=== PATIENT | female | born 1950 | race Caucasian/White ===

== ENCOUNTER 2019-04-15 14:22 | Emergency (ER) | payer MEDICARE, OTHER ==
[~2019-04-15] VITALS: Ht 180.3 cm; Wt 113.0 kg
--- NOTE | 2019-04-15 14:23 | ED General ---
General Stated Complaint: HIP PAIN History of Present Illness Date Seen by Provider: Apr 15, 2019 Time Seen by Provider: 14:23 Initial Comments Patient is a 68-year-old female who comes to the emergency department today complaining of left hip pain. The patient was standing upright and twisted a certain position to the right and she felt a pop and had sudden onset of pain in the left hip. Her pain is over the lateral aspect of the hip. She has been able to weight-bear although this does cause pain. She has otherwise been healthy. No recent fever, chills, cough or other illness. Allergies and Home Medications Allergies Coded Allergies: Penicillins (Verified Allergy, Unknown, 04/15/19) erythromycin base (Verified Allergy, Unknown, 04/15/19) Patient Home Medication List Home Medication List Reviewed: Yes Review of Systems Review of Systems Constitutional: no symptoms reported EENTM: no symptoms reported Respiratory: no symptoms reported Cardiovascular: no symptoms reported Genitourinary: no symptoms reported Musculoskeletal: no symptoms reported, see HPI Skin: no symptoms reported All Other Systems Reviewed Negative Unless Noted: Yes Physical Exam Vital Signs Vital Signs - First Documented 04/15/19 14:30 Temp 36.7 Pulse 72 Resp 16 B/P (MAP) 152/93 (112) Pulse Ox 100 O2 Delivery Room Air Capillary Refill : Height, Weight, BMI Height: '" Weight: lbs. oz. kg; BMI Method: General Appearance: No Apparent Distress, WD/WN HEENT: Normal ENT Inspection Neck: Full Range of Motion Respiratory: Lungs Clear Cardiovascular: Regular Rate, Rhythm, No Edema Gastrointestinal: Non Tender, Soft Extremity: Normal Capillary Refill, Normal Inspection Skin: Normal Color, Warm/Dry Progress/Results/Core Measures Suspected Sepsis SIRS Temperature: Pulse: Respiratory Rate: Blood Pressure / Mean: Results/Orders My Orders Orders - CHELY SCOTT DO Pelvis With Left Hip 2-3 View (04/15/19 14:29) Ct Extremity Lower Left Wo (04/15/19 15:01) Vital Signs/I&O 04/15/19 14:30 Temp 36.7 Pulse 72 Resp 16 B/P (MAP) 152/93 (112) Pulse Ox 100 O2 Delivery Room Air Capillary Refill : Progress Note : Progress Note ED Summary: The patient is evaluated in the emergency department for injury to left hip. On physical exam, the hip joint itself was not painful with internal or external rotation. Patient's lower extremity on the left is placed into DELIA position and compression onto the hip joint does not cause pain. She does have some point tenderness to palpation over the lateral aspect of the hip and the greater trochanter. Distal pulses are 2+. In the ER, she underwent plain film imaging which was negative. Subsequent to that she underwent CT scan of the hip which was also negative for acute fracture. She did have significant osteoarthritis but no acute injuries. Patient was discharged home with reassurance. She has seen orthopedics in the past and I recommended that she follow up with orthopedics in the next couple of weeks if her symptoms are not naturally improving. Tylenol or Motrin as needed for discomfort. Departure Impression Primary Impression: Contusion of hip Disposition: 01 HOME, SELF-CARE Condition: Improved CHELY SCOTT DO Apr 15, 2019 14:23
--- NOTE | 2019-04-15 15:00 | Diagnostic Imaging Report ---
INDICATION: Twisted and heard pop in left hip with pain. FINDINGS: AP pelvis and left hip. 3 views. SI joints and pubic symphysis in good alignment. Sclerotic changes are seen along the SI joints bilaterally. There are no pelvic fractures. 2 views left hip shows normal articulation of the joint. Articulating surfaces are smooth. No hypertrophic bony changes. No fractures. IMPRESSION: Degenerative changes SI joints with no acute abnormalities in the pelvis or left hip. Dictated by: Dictated on workstation # [id number]
--- NOTE | 2019-04-15 15:41 | Diagnostic Imaging Report ---
PROCEDURE: CT left lower extremity without contrast. TECHNIQUE: Multiple contiguous axial images were obtained through the left lower extremity without the use of intravenous contrast. Sagittal and coronal reformations were then performed. Auto Exposure Controls were utilized during the CT exam to meet ALARA standards for radiation dose reduction. INDICATION: Left hip pain. Patient reports pop with subsequent pain. FINDINGS: Noncontrasted images show the femoral head in good alignment. There is loss of joint space, consistent with degenerative disease. Mild hypertrophic lipping noted along both the lateral and medial acetabulum. Femoral head is smooth with no fractures. No evidence of osteonecrosis. The femoral neck and trochanter appear normal. No soft tissue calcifications are seen about the hip. Tissue planes are well preserved. IMPRESSION: Moderate degenerative arthritic changes of the left hip without evidence of acute fracture. Dictated by: Dictated on workstation # [id number]
[2019-04-15] MEDS ORDERED: IBUP-1780 PO (16:09)
[2019-04-15] MEDS ORDERED: TRM50T PO (16:10)
[2019-04-15 16:20] VITALS: BP 152/93
== END 2019-04-15 16:20 | disposition home or self-care (01) ==
LOC: ER FS 14:24
DX: S70.02XA Contusion of left hip, initial encounter (principal); Z88.0 Allergy status to penicillin; Z88.1 Allergy status to other antibiotic agents; X50.1XXA Overexertion from prolonged static or awkward postures, initial encounter
CPT/HCPCS: 73502; 73700

== ENCOUNTER 2022-02-09 09:42 | Outpatient (RCR) | payer MEDICARE, OTHER ==
[~2022-02-09 09:42] MED LIST: IBUP-1780 PO; TRM50T PO
== END 2022-02-27 | disposition home or self-care (01) ==
LOC: ONC 09:42
PROVIDERS: ATTEND Radiology Radiation Oncology
DX: C50.811 Malignant neoplasm of overlapping sites of right female breast (principal); I10 Essential (primary) hypertension; E78.00 Pure hypercholesterolemia, unspecified; Z90.13 Acquired absence of bilateral breasts and nipples; Z92.21 Personal history of antineoplastic chemotherapy
CPT/HCPCS: 99205

== ENCOUNTER → 2022-03-30 | Outpatient (RCR) | payer MEDICARE, OTHER | END | disposition home or self-care (01) | LOC: ONC 03-09 08:32 | PROVIDERS: ATTEND Radiology Radiation Oncology | DX: Z51.0 Encounter for antineoplastic radiation therapy (principal); C50.811 Malignant neoplasm of overlapping sites of right female breast; I10 Essential (primary) hypertension; E78.00 Pure hypercholesterolemia, unspecified; Z90.13 Acquired absence of bilateral breasts and nipples; Z92.21 Personal history of antineoplastic chemotherapy | CPT/HCPCS: 77280; 77290; 77295; 77300; 77332; 77334; 77336; 77417; 77470 ==

== ENCOUNTER → 2022-04-27 | Outpatient (RCR) | payer MEDICARE, OTHER | END | disposition home or self-care (01) | LOC: ONC 03-31 12:59 | PROVIDERS: ATTEND Radiology Radiation Oncology | DX: Z51.0 Encounter for antineoplastic radiation therapy (principal); C50.811 Malignant neoplasm of overlapping sites of right female breast; I10 Essential (primary) hypertension; E78.00 Pure hypercholesterolemia, unspecified; Z90.13 Acquired absence of bilateral breasts and nipples; Z92.21 Personal history of antineoplastic chemotherapy | CPT/HCPCS: 77290; 77300; 77332; 77334; 77336; 77417 ==

== ENCOUNTER 2022-04-29 10:58 | Outpatient (RCR) | payer MEDICARE, OTHER | END 2022-05-28 | disposition home or self-care (01) | LOC: ONC 10:58 | PROVIDERS: ATTEND Radiology Radiation Oncology | DX: Z51.0 Encounter for antineoplastic radiation therapy (principal); C50.811 Malignant neoplasm of overlapping sites of right female breast; I10 Essential (primary) hypertension; E78.00 Pure hypercholesterolemia, unspecified; Z90.13 Acquired absence of bilateral breasts and nipples; Z92.21 Personal history of antineoplastic chemotherapy | CPT/HCPCS: 77336 ==

== ENCOUNTER → 2022-05-15 | Outpatient (CLI) | payer MEDICARE, OTHER ==
[2022-05-15 12:44] LABS: BASOPHILS # (AUTO) 0.1 10^3/uL (0.0-0.1); BASOPHILS % (AUTO) 1 % (0-10); EOSINOPHILS % (AUTO) 0 % (0-10); HEMATOCRIT 41 % (35-52); HEMOGLOBIN 13.5 g/dL (11.5-16.0); LYMPHOCYTES # (AUTO) 0.8 10^3/uL (1.0-4.0); LYMPHOCYTES % (AUTO) 10 % (12-44); MEAN CORPUSCULAR HEMOGLOBIN 31 pg (25-34); MEAN CORPUSCULAR HGB CONC 33 g/dL (32-36); MEAN CORPUSCULAR VOLUME 92 fL (80-99); MEAN PLATELET VOLUME 10.6 fL (9.0-12.2); MONOCYTES # (AUTO) 0.5 10^3/uL (0.0-1.0); MONOCYTES % (AUTO) 5 % (0-12); NEUTROPHILS # (AUTO) 7.2 10^3/uL (1.8-7.8); NEUTROPHILS % (AUTO) 84 % (42-75); PLATELET COUNT 239 10^3/uL (130-400); WHITE BLOOD COUNT 8.6 10^3/uL (4.3-11.0)
== END ==
LOC: LAB FS 12:14
PROVIDERS: ATTEND Registered Nurse Community Health
DX: R50.9 Fever, unspecified (principal)
CPT/HCPCS: 36415; 85025

== ENCOUNTER 2022-06-03 08:52 | Outpatient (RCR) | payer MEDICARE, OTHER | END 2022-06-27 | disposition home or self-care (01) | LOC: ONC 08:52 | PROVIDERS: ATTEND Radiology Radiation Oncology | DX: C50.811 Malignant neoplasm of overlapping sites of right female breast (principal); I10 Essential (primary) hypertension; E78.00 Pure hypercholesterolemia, unspecified; Z90.13 Acquired absence of bilateral breasts and nipples; Z92.21 Personal history of antineoplastic chemotherapy | CPT/HCPCS: 99213 ==